=== PATIENT | female | born 1935 | race Caucasian/White ===

== ENCOUNTER → 2018-12-17 | Outpatient (CLI) | payer MEDICARE | END | disposition home or self-care (01) | LOC: CFH 11:08 | PROVIDERS: ATTEND Nurse Practitioner Primary Care | DX: R10.9 Unspecified abdominal pain (principal) | CPT/HCPCS: 74021 ==

== ENCOUNTER 2019-01-27 09:16 | Outpatient (CLI) | payer MEDICARE | END 2019-01-27 23:59 | disposition home or self-care (01) | LOC: CFH 09:16 → EDSTATUS 09:30 → CFH 23:59 | PROVIDERS: ATTEND Nurse Practitioner Primary Care | DX: Z12.31 Encounter for screening mammogram for malignant neoplasm of breast (principal); M85.89 Other specified disorders of bone density and structure, multiple sites; E78.2 Mixed hyperlipidemia; K21.9 Gastro-esophageal reflux disease without esophagitis | CPT/HCPCS: 77063; 77067; 77080 ==

== ENCOUNTER → 2020-03-14 | Outpatient (CLI) | payer MEDICARE | END | disposition home or self-care (01) | LOC: CFH 12:49 | PROVIDERS: ATTEND Internal Medicine | DX: Z12.31 Encounter for screening mammogram for malignant neoplasm of breast (principal) | CPT/HCPCS: 77063; 77067 ==